=== PATIENT | female | born 2000 | race Caucasian/White ===

== ENCOUNTER 2020-09-13 06:13 | Day surgery (SDC) | payer MEDICAID ==
[~2020-09-13] VITALS: Ht 162.6 cm; Wt 97.5 kg
[~2020-09-13 06:13] MED LIST: BC PATCH
[2020-09-13 06:51] LABS: HEMATOCRIT 42.8 % (36.0-48.0); MCHC 32.7 g/dL (31.0-37.0); MCV 88.6 fL (80.0-100.0); RBC 4.83 10x6/uL (4.00-5.40); RDW 13.2 % (11.5-14.5); WBC 7.3 10x3/uL (4.8-10.8)
[2020-09-13 06:56] LABS: HCG SERUM NEGATIVE (NEGATIVE)
[2020-09-13 07:08] VITALS: BP 117/72; Ht 162.6 cm; Wt 97.5 kg
--- NOTE | 2020-09-13 10:04 | HP ---
PATIENT: LOVE,SHAMAR ASHLEY MEDICAL RECORD: [id number] ACCOUNT: [id number] LOCATION:[facility] : 98 ADMISSION DATE: 09/13/20 PCP: LEEANN JACOBSON HISTORY AND PHYSICAL EXAMINATION HISTORY OF PRESENT ILLNESS: Shamar is 20. She has been having persistent strep and chronic pharyngitis. Has been admitted for tonsillectomy and adenoidectomy. PAST MEDICAL HISTORY: Includes reactive airway disease. PAST SURGICAL HISTORY: Includes hip surgery and wisdom tooth extraction. CURRENT MEDICATIONS: control monthly. ALLERGIES: No known drug allergies. PHYSICAL EXAMINATION: GENERAL: She is healthy-appearing, developmentally normal. FACE: Normal, symmetric, no lesions. EYES: Sclerae and conjunctivae are normal. EARS: Canals and TMs are normal. NOSE: She has some septal deviation. It does not appear to give any problems. ORAL CAVITY AND OROPHARYNX: 4+ cryptic tonsils and tonsilliths. NECK: No masses, no adenopathy. CHEST: Clear. CARDIOVASCULAR: Regular rate and rhythm, no murmur. EXTREMITIES: Normal. IMPRESSION: Recurrent strep pharyngitis and adenotonsillar hypertrophy. PLAN: Tonsillectomy and adenoidectomy. TRANSINT:[id number] Voice Confirmation ID: [id number] DOCUMENT ID: [id number] PRABHU QUIROZ MD at 1004 CC: [id number] DICTATION DATE: 09/09/20 1527 FOOD SAMPLER: 09/09/20 1545 [facility] [address] [place] [address]
--- NOTE | 2020-09-13 11:06 | NUR ---
1104 - PT AWAKENING, OPA OUT
--- NOTE | 2020-09-13 12:30 | NUR ---
DC INSTRUCTIONS GIVEN TO PT/FAMILY. STATE UNDERSTANDING. DC'D IV CATH FULLY INTACT. PT LEFT UNIT VIA WC AT 1230
--- NOTE | 2020-09-14 08:04 | OP ---
PATIENT NAME: SHAMAR ALEMAN MEDICAL RECORD: [id number] :98 LOCATION:[facility] ADMISSION DATE: SURGEON: PRABHU TOMAS MD DATE OF OPERATION: 09/13/2020 PREOPERATIVE DIAGNOSIS: Chronic pharyngitis. POSTOPERATIVE DIAGNOSIS: Chronic pharyngitis. PROCEDURE: Tonsillectomy and adenoidectomy. SURGEON: Prabhu Tomas MD ANESTHESIA: General orotracheal. BLOOD LOSS: Less than 5 cc. SPECIMENS: Right and left tonsil. COMPLICATIONS: None. DISPOSITION: Recovery, stable. PROCEDURE IN DETAIL: She was brought to the operating room and placed in supine position, sedated and intubated by anesthesia. The eyes were taped. Table was turned 90 degrees. Head drape was applied. She was positioned for tonsillectomy. Using a headlight, a Leo-Tin mouth gag was carefully inserted and elevated on a towel on her chest. The palate was examined and palpated. It was normal. A red rubber catheter was placed through the right side of the nose and the pharynx and grasped with tonsil clamp to retract the soft palate. Using a mirror, nasopharynx was examined. Suction cautery on a setting of 35 was used to ablate and suction adenoid pad up by the choana. The posterior nasal cavity and nasopharynx were all normal. Red rubber catheter was let down and removed. The right tonsil was grasped at the superior pole with a straight Allis clamp. Massive tonsil with copious tonsilliths dissected out with a spatula tip cautery on a setting of 10. Left tonsil was removed in the same fashion. Then, both sides of the nose were irrigated with saline. The pharynx was suctioned. Tonsillar fossae were agitated. Suction cautery on a setting of 20 was used to control minimal oozing. With the field completely clean and dry, the Leo-Tin mouth gag was let down and removed. She was awakened, extubated, and transported to recovery in good condition. No complications. TRANSINT:[id number] Voice Confirmation ID: [id number] DOCUMENT ID: [id number] PRABHU TOMAS MD at 0804 CC: [id number] DICTATION DATE: 09/13/20 1301 DISEASE CASE MANAGER: 09/13/202011 DEP SDC 09/13/20 [facility] [address] [facility]
== END 2020-09-13 12:30 | disposition home or self-care (01) ==
LOC: D.OPS 06:13
PROVIDERS: Anesthesiology; ATTEND Otolaryngology
DX: J31.2 Chronic pharyngitis (principal); J45.909 Unspecified asthma, uncomplicated